=== PATIENT | female | born 1975 | race American Indian/Alaskan Native ===

== ENCOUNTER 2016-10-03 18:20 | Emergency (ER) | payer MEDICARE ==
[~2016-10-03] VITALS: Ht 167.6 cm; Wt 95.0 kg
[~2016-10-03 18:20] MED LIST: AMLO10TA4 PO; DOCU-30 PO; ESTR0.3T PO; FLUO40CA9 PO; HYDR-3144 PO; INTE30SY IM; MELO7.5T5 PO; OMEP-110 PO; OMEP20TA62 PO; ONDA4TAB7 PO; TIZA4TAB PO; TRAZ50TA18 PO; ZIPR20CA2 PO
[2016-10-03] MEDS ORDERED: SODIUM CHLORIDE 0.9% 1,000ML IVBOLUS ONE (19:00)
[2016-10-03] MEDS ORDERED: SODIUM CHLORIDE FLUSH 10ML SYR IVF ONE (19:00)
[2016-10-03] MEDS ORDERED: HYDR-3240 PO (19:10)
[2016-10-03 19:12] LABS: ASPARTATE AMINO TRANSFERASE 11 U/L (15-37); BLOOD UREA NITROGEN 13 mg/dL (7-18)
[2016-10-03] MEDS ORDERED: KETOROLAC 30 MG/1 ML ONE (19:17)
[2016-10-03] MEDS ORDERED: PROCHLORPERAZINE 5 MG/ML, 2ML ONE (19:18)
[2016-10-03] MEDS ORDERED: DIPHENHYDRAMINE 50 MG/ML, 1ML ONE (19:18)
[2016-10-03] MEDS ORDERED: KETOROLAC 30 MG/1 ML IVPush ONE (19:30)
[2016-10-03] MEDS ORDERED: PROCHLORPERAZINE 5 MG/ML, 2ML IVPush ONE (19:30)
[2016-10-03] MEDS ORDERED: DIPHENHYDRAMINE 50 MG/ML, 1ML IVPush ONE (19:30)
[2016-10-03 20:23] VITALS: BP 119/75
== END 2016-10-03 20:49 | disposition home or self-care (01) ==
LOC: ED 20:39
DX: R11.2 Nausea with vomiting, unspecified (principal); G43.909 Migraine, unspecified, not intractable, without status migrainosus
CPT/HCPCS: 36415; 80053; 81003; 83690; 84703; 85025; 96361; 96374; 96375; 99284; J0780; J1200; J1885; J7030

== ENCOUNTER → 2018-04-20 | Outpatient (CLI) | payer MEDICARE ==
[~2018-04-20] MED LIST changes: +DOCU-131 PO; -DOCU-30 PO; -HYDR-3144 PO; +HYDR-3240 PO; +HYDR-3245 PO; -TRAZ50TA18 PO; +TRAZ50TA66 PO
== END | disposition home or self-care (01) ==
LOC: CFH 12:52
PROVIDERS: ATTEND Family Medicine
DX: Z12.31 Encounter for screening mammogram for malignant neoplasm of breast (principal)
CPT/HCPCS: 77063; 77067

== ENCOUNTER → 2019-11-13 | Outpatient (CLI) | payer MEDICARE ==
[~2019-11-13] MED LIST changes: -TIZA4TAB PO; +TIZA4TAB2 PO
== END | disposition home or self-care (01) ==
LOC: CFH 12:45
PROVIDERS: ATTEND Family Medicine
DX: R92.8 Other abnormal and inconclusive findings on diagnostic imaging of breast (principal); N64.4 Mastodynia
CPT/HCPCS: 76642; 77066; G0279